=== PATIENT | male | born 1990 | race Two or more races ===

== ENCOUNTER 2025-08-17 08:28 | Emergency (ER) | payer OTHER ==
[~2025-08-17] VITALS: Ht 170.2 cm; Wt 81.6 kg
[2025-08-17] MEDS ORDERED: IBUPROFEN 400 MG TABLET ONE (08:48)
[2025-08-17] MEDS ORDERED: ACETAMINOPHEN ES 500 MG TABLET ONE (08:48)
[2025-08-17] MEDS: IBUPROFEN 400 MG TABLET PO ONE (08:50)
[2025-08-17] MEDS: ACETAMINOPHEN ES 500 MG TABLET PO ONE (08:50)
[2025-08-17 10:42] VITALS: BP 135/67; TEMP 98; O2SAT 97
== END 2025-08-17 10:43 ==
LOC: ER 08:39
DX: S80.02XA Contusion of left knee, initial encounter (principal); R22.42 Localized swelling, mass and lump, left lower limb; M25.562 Pain in left knee; W20.8XXA Other cause of strike by thrown, projected or falling object, initial encounter; Y93.89 Activity, other specified; Y92.89 Other specified places as the place of occurrence of the external cause; Y99.8 Other external cause status
CPT/HCPCS: 73564-TC